=== PATIENT | male | born 1945 | race Caucasian/White ===

== ENCOUNTER 2019-01-19 10:51 | Day surgery (SDC) | payer OTHER ==
[~2019-01-19] VITALS: Ht 188 cm; Wt 83.9 kg
[~2019-01-19 10:51] MED LIST: IBUP400 PO
--- NOTE | 2019-01-19 11:21 | NUR ---
INTO SDS ADMITTIED TO UNIT VSS. Ambulatory in Day Surgery. History, Chart, Medications and Allergies reviewed before start of procedure.Lungs clear T/O to Auscultation.
--- NOTE | 2019-01-19 19:24 | NUR ---
SHIFT SUMMARY POD #0 PT IS TOLERATING PO INTAKE, PAIN MANAGED WITH TYLENOL AND TORADOL. MIGUEL BANDAGE IN PLACE, APPEARS TO BE C/D/I. POLAR PACK,SCD'S AND TEDS ARE ON. CALL LIGHT IN REACH
--- NOTE | 2019-01-19 21:53 | NUR ---
S/P LTKA. PT DOING WELL.HAS BEEN UP AMBULATING IN RINCON WITH FWW. PAIN IS MINIMAL. FULL SENSATION TO EXTREM. PT TOLERATING PO AND IS VOIDING WELL. DRESSING CDI. CONT WITH PAIN MANAGEMENT AND TREATMENT PLAN THIS NOC. CALL LIGHT IN REACH.
--- NOTE | 2019-01-20 04:20 | NUR ---
POD 1 S/P LTKA. HAS DONE WELL DURING NIGHT, PAIN TO KNEE IS MINIMAL HOWEVER PT BIGGEST COMPLAINT IS LEFT HIP PAIN THAT PT STATES IS CHRONIC BUT IS MORE PAINFUL AT THIS TIME. STATES PAIN IS BETTER THIS AM. PT HAS BEEN AMBULATING IN RINCON. TOLERATING PO, IV SL. VOIDING WELL. DRESSING CDI WITH GOOD CIRC CHECKS. PLAN FOR DC HOME TODAY AFTER PT/OT.
[2019-01-20 04:25] LABS: BASOPHILS ABSOLUTE AUTO 0.02 K/mm3 (0.00-0.23); BASOPHILS PERCENT AUTO 0 % (0-2); EOSINOPHILS ABSOLUTE AUTO 0.02 K/mm3 (0.00-0.68); EOSINOPHILS PERCENT AUTO 0 % (0-6); Hematocrit 38.3 % (37.0-53.0); Hemoglobin 12.5 g/dL (13.5-17.5); IMMATURE GRAN ABSOLUTE AUTO 0.04 K/mm3 (0.00-0.10); IMMATURE GRAN PERCENT AUTO 0 % (0-1); LYMPHOCYTES ABSOLUTE AUTO 1.59 K/mm3 (0.84-5.20); LYMPHOCYTES PERCENT AUTO 17 % (21-46); MONOCYTES ABSOLUTE AUTO 0.74 K/mm3 (0.16-1.47); MONOCYTES PERCENT AUTO 8 % (4-13); Mean Corpuscular HGB 28.7 pg (26.0-34.0); Mean Corpuscular HGB Conc 32.6 g/dL (31.5-36.5); Mean Corpuscular Volume 88 fL (80-100); Mean Platelet Volume 9.2 fL (9.1-12.4); NEUTROPHILS ABSOLUTE AUTO 6.95 K/mm3 (1.96-9.15); NEUTROPHILS PERCENT AUTO 74 % (41-73); Platelet Count 214 K/mm3 (150-400); RDW Coefficient Variation 13.5 % (11.7-14.2); RDW Standard Deviation 43.4 fL (35.1-46.3); Red Blood Cell Count 4.35 M/mm3 (4.30-5.90); White Blood Cell Count 9.36 K/mm3 (4.00-11.30)
[2019-01-20 04:49] LABS: Anion Gap 6 mmol/L (6-16); Blood Urea Nitrogen 23 mg/dL (8-24); Bun/Creatinine Ratio 22.8 (12.0-20.0); CO2, Blood 26 mmol/L (21-32); Calcium, Blood 8.2 mg/dL (8.5-10.1); Chloride, Blood 107 mmol/L (98-108); Creatinine, Blood 1.01 mg/dL (0.60-1.20); Glomerular Filtration Rate >60 (60-); Glucose, Blood 96 mg/dL (70-99); Potassium, Blood 4.5 mmol/L (3.5-5.5); Sodium, Blood 139 mmol/L (136-145)
[2019-01-20] MEDS ORDERED: Aspirin EC81 MG (11:27)
[2019-01-20] MEDS ORDERED: Percocet 5-3251 EACH PO (11:28)
--- NOTE | 2019-01-20 12:36 | NUR ---
DISCHARGE PT D/C TO HOME WITH HIS . D/C RX, [employer] DRSG'S, AND EDUCATION MATERIALS PROVIDED. DRSG C/D/I. POLAR PACK SENT WITH PT. PAIN MANAGED WITH PO PAIN MEDICATION. PT IS TOLERATING REGULAR DIET. PT ENC TO F/U [facility] FOR ANY PROBLEMS OR CONCERNS. VSS, RESP UNLABORED.
== END 2019-01-20 12:25 | disposition home or self-care (01) ==
LOC: ORSCMMR 10:51 → ORD 12:30 → SURS 15:14 → ORSCMMR 01-20 12:25
PROVIDERS: Orthopaedic Surgery
PROC: 0SRD0JA Replacement of Left Knee Joint with Synthetic Substitute, Uncemented, Open Approach (ICD-10-PCS; principal; 2019-01-19 12:30)
DX: M17.12 Unilateral primary osteoarthritis, left knee (principal); Z23 Encounter for immunization
CPT/HCPCS: 36415; 73560-LT; 80048; 83735; 85025; 86850; 86900; 86901; 88300; 90686; 97110; 97116; 97161; 97530; C1776; G0008; J0171; J0690; J0735; J1100; J1885; J2250; J2405; J2795; J3010; J7120

== ENCOUNTER 2019-03-23 11:18 | Day surgery (SDC) | payer OTHER ==
[~2019-03-23] VITALS: Ht 188 cm; Wt 78.1 kg
[~2019-03-23 11:18] MED LIST changes: +Aspirin EC81 MG; +Percocet 5-3251 EACH PO; +TYLENOL325 MG PO
--- NOTE | 2019-03-23 12:26 | NUR ---
Ambulatory in Day Surgery History, Chart, Medications and Allergies reviewed before start of procedure.Patient confirms NPO status and agrees with scheduled surgery. Patient reports completing Chlorhexadine shower X2 prior to admission to hospital.Surgical site prepped with 2% Chlorhexidine cloth wipe. NOSIN NASAL SWABS DONE.
--- NOTE | 2019-03-23 14:13 | NUR ---
03/23/19 1412 Saskia Mcgill CIRCUIT PLACED ON PATIENT TO HELP KEEP SATS UP, PATIENT HAD SPINAL.
--- NOTE | 2019-03-23 16:05 | NUR ---
PT ARRIVED TO ROOM ON OWN BED, A/0 X 4, PLEASANT/COOPERATIVE, NO N/V, POST OP VS COMMENCED AND STABLE, PT RECEIVED SPINAL ANESTHESIA, NO SENSATION TO BLE, ABLE TO MOVE [place] FEET AND LIFT L LEG.
--- NOTE | 2019-03-23 19:28 | NUR ---
shift summary: post op vss, no acute changes. pt remained a/0 x4, pleasant/cooperative, tolerated po intake with no n/v, no urination up to shift change, notifed next shift RN of this. operative le with good capillary refill and pulses, gross movement intact, sensation returning, denies pain. encouraged pt to notify RN at onset of pain. dr curtis called for update on pt's status.
--- NOTE | 2019-03-24 04:12 | NUR ---
SHIFT SUMMARY PT A&O X4 T/O SHIFT. POD#1 R TKA; DRESSING CDI; CRYOTHERAPY TO R KNEE T/O SHIFT. PPPX4; ALL EXT PWD; PT DENIES N/T IN EXT. PT UP WITH FWW AND SBA TO TOILET AND IN RINCON X1. PAIN MANAGED PER EMAR. VSS; PT DENIES SOB, CP AND NAUSEA T/O SHIFT. CALL LIGHT IN REACH; PT DEMONSTRATES USE. WCTM UNTIL REPORT TO DAY SHIFT RN.
[2019-03-24 04:55] LABS: BASOPHILS ABSOLUTE AUTO 0.01 K/mm3 (0.00-0.23); BASOPHILS PERCENT AUTO 0 % (0-2); EOSINOPHILS PERCENT AUTO 0 % (0-6); Hematocrit 37.9 % (37.0-53.0); Hemoglobin 12.4 g/dL (13.5-17.5); IMMATURE GRAN ABSOLUTE AUTO 0.04 K/mm3 (0.00-0.10); IMMATURE GRAN PERCENT AUTO 0 % (0-1); LYMPHOCYTES ABSOLUTE AUTO 0.97 K/mm3 (0.84-5.20); LYMPHOCYTES PERCENT AUTO 10 % (21-46); MONOCYTES ABSOLUTE AUTO 0.58 K/mm3 (0.16-1.47); MONOCYTES PERCENT AUTO 6 % (4-13); Mean Corpuscular HGB Conc 32.7 g/dL (31.5-36.5); Mean Corpuscular Volume 89 fL (80-100); Mean Platelet Volume 9.3 fL (9.1-12.4); NEUTROPHILS ABSOLUTE AUTO 8.39 K/mm3 (1.96-9.15); NEUTROPHILS PERCENT AUTO 84 % (41-73); Platelet Count 247 K/mm3 (150-400); RDW Coefficient Variation 14.3 % (11.7-14.2); RDW Standard Deviation 46.5 fL (35.1-46.3); Red Blood Cell Count 4.28 M/mm3 (4.30-5.90); White Blood Cell Count 9.99 K/mm3 (4.00-11.30)
[2019-03-24 05:17] LABS: Anion Gap 7 mmol/L (6-16); Blood Urea Nitrogen 24 mg/dL (8-24); Bun/Creatinine Ratio 24.1 (12.0-20.0); CO2, Blood 25 mmol/L (21-32); Calcium, Blood 8.5 mg/dL (8.5-10.1); Chloride, Blood 105 mmol/L (98-108); Glomerular Filtration Rate >60 (60-); Glucose, Blood 118 mg/dL (70-99); Potassium, Blood 4.6 mmol/L (3.5-5.5); Sodium, Blood 137 mmol/L (136-145)
[2019-03-24] MEDS ORDERED: Percocet 5-3251 EACH PO (10:12)
[2019-03-24] MEDS ORDERED: ASPI81CH PO (10:15)
--- NOTE | 2019-03-24 11:45 | NUR ---
PATIENT D/C'D HOME WITH SPOUSE AT THIS TIME. PATIENT STATES PAIN MINIMAL, TOLERATING PO. PATIENT HAD L TKA 2 MONTHS AGO, FAMILIAR WITH MEDS, WOUND CARE, ACTIVITY, OP PT, ETC. NO C/O AT THIS TIME.
== END 2019-03-24 11:45 | disposition home or self-care (01) ==
LOC: ORSCMMR 11:18 → ORD 13:15 → ORSCMMR 13:15 → SURS 16:55 → ORSCMMR 03-24 11:45
PROVIDERS: Orthopaedic Surgery
PROC: 0SRC0JA Replacement of Right Knee Joint with Synthetic Substitute, Uncemented, Open Approach (ICD-10-PCS; principal; 2019-03-23 13:15)
DX: M17.11 Unilateral primary osteoarthritis, right knee (principal); Z01.818 Encounter for other preprocedural examination; Z87.891 Personal history of nicotine dependence
CPT/HCPCS: 36415; 73560-RT; 80048; 85025; 86850; 86900; 86901; 88300; 97110; 97116; 97162; 97530; C1776; J0171; J0690; J0735; J1100; J1885; J2250; J2370; J2405; J2704; J2795; J3010; J7120

== ENCOUNTER → 2020-10-14 | Outpatient (CLI) | payer OTHER ==
[~2020-10-14] MED LIST changes: +ASPI81CH PO; +OMEP20ER
== END | disposition home or self-care (01) ==
LOC: LAB SHORT 07:33 → LAB 07:33
DX: L57.0 Actinic keratosis (principal)
CPT/HCPCS: 88305

== ENCOUNTER → 2023-01-04 | Outpatient (CLI) | payer OTHER | END | disposition home or self-care (01) | LOC: LAB SHORT 07:55 → LAB 07:55 | DX: C44.42 Squamous cell carcinoma of skin of scalp and neck (principal); L57.8 Other skin changes due to chronic exposure to nonionizing radiation | CPT/HCPCS: 88305 ==